=== PATIENT | female | born 1980 ===

== ENCOUNTER 2021-04-16 13:19 | Outpatient (CLI) | payer OTHER ==
[~2021-04-16 13:19] MED LIST: Iopamidol 370 76% 100 ML VIAL ONE
== END 2021-04-16 13:20 | disposition home or self-care (01) ==
LOC: BICCT 13:19
PROVIDERS: ATTEND Physician Assistant Medical
DX: G43.009 Migraine without aura, not intractable, without status migrainosus (principal); R22.0 Localized swelling, mass and lump, head; R20.2 Paresthesia of skin; D16.4 Benign neoplasm of bones of skull and face
CPT/HCPCS: 70470; Q9967